=== PATIENT | female | born 1955 | race Caucasian/White ===

== ENCOUNTER 2018-05-05 17:14 | Inpatient (IN) | payer MEDICARE ==
[~2018-05-05] VITALS: Ht 165.1 cm; Wt 86.4 kg
[~2018-05-05 17:14] MED LIST: BUSP5TAB2 PO; DOXE150C PO; FOLI-17 PO; HYDR-3237 PO; LISI40TA PO; METH25VI INJ; OMEP20TA62 PO
[2018-05-05 18:24] LABS: MEAN CORPUSCULAR HEMOGLOBIN 32.8 pg (27.0-34.8); MEAN CORPUSCULAR HGB CONC 34.2 g/dL (32.4-35.8); MEAN CORPUSCULAR VOLUME 95.9 fL (80-100); PLATELET COUNT 275 x10^3/uL (130-400); RED BLOOD COUNT 4.46 x10^6/uL (3.82-5.3); RED CELL DISTRIBUTION WIDTH 12.9 % (9.6-15.2)
[2018-05-05 18:28] LABS: ALBUMIN 3.6 g/dL (3.4-5.0); ANION GAP 7 mmol/L (5-15); CALCIUM 8.6 mg/dL (8.5-10.1); CHLORIDE 111 mmol/L (98-107)
[2018-05-05 18:31] LABS: ALANINE AMINOTRANSFERASE 23 U/L (12-78); ALKALINE PHOSPHATASE 71 U/L (45-117); BILIRUBIN,TOTAL 0.2 mg/dL (0.2-1.0); CREATININE 1.06 mg/dL (0.55-1.02); TOTAL PROTEIN 7.2 g/dL (6.4-8.2)
[2018-05-05 18:51] LABS: INTERNATIONAL NORMALIZED RATIO 0.92 (0.93-1.1); PROTHROMBIN TIME 9.6 Seconds (9.6-11.5)
[2018-05-05 18:58] LABS: BASOPHILS # (AUTO) 0.12 x10^3/uL (0-0.1); BASOPHILS % (AUTO) 1 % (0-1); EOSINOPHILS # (AUTO) 0.26 x10^3/uL (0-0.4); EOSINOPHILS % (AUTO) 1 % (1-7); LYMPHOCYTES # (AUTO) 6.67 x10^3/uL (1-3.4); LYMPHOCYTES % (AUTO) 35 % (22-44); MD SCAN; MONOCYTES # (AUTO) 1.79 x10^3/uL (0.2-0.8); MONOCYTES % (AUTO) 9 % (2-9); NEUTROPHILS # (AUTO) 10.17 x10^3/uL (1.8-6.8); NEUTROPHILS % (AUTO) 54 % (42-75)
[2018-05-05] MEDS ORDERED: SODIUM CHLORIDE 0.9% 1,000 ML IV ONE ×2 (19:00→21:30)
[2018-05-05] MEDS ORDERED: SODIUM CHLORIDE FLUSH 10ML SYR IVF ONE (19:00)
[2018-05-05 20:54] VITALS: BP 147/78
[2018-05-05] MEDS ORDERED: ONDANSETRON ODT 4 MG PO PRN (21:30)
[2018-05-05] MEDS ORDERED: ACETAMINOPHEN 325 MG TABLET PO PRN (21:30)
[2018-05-05] MEDS: HYDROcodone/APAP 5/325 TABLET PO PRN (22:03)
[2018-05-05] MEDS: DOXEPIN 25 MG CAPSULE PO SCH (22:03)
[2018-05-05] MEDS: HEPARIN 5,000 UNITS/ML, 1ML SQ SCH (22:05)
[2018-05-05] MEDS: INSULIN LISPRO 100 UNITS/ML, PEN SQ-INSULIN SCH (22:37)
[2018-05-05 23:26] LABS: MICROSCOPIC NOT IND
[2018-05-05 23:31] LABS: CULTURE INDICATED? NO
[2018-05-05 23:40] LABS: AMPHETAMINE SCREEN, URINE Negative (Negative); BARBITURATE SCREEN, URINE Negative (Negative); BENZODIAZEPINE SCREEN, URINE Negative (Negative); CANNABINOID SCREEN, URINE Negative (Negative); COCAINE SCREEN, URINE Negative (Negative); METHADONE SCREEN, URINE Negative (Negative); OPIATE SCREEN, URINE Positive (Negative)
[2018-05-06 01:22] VITALS: BP 133/77
[2018-05-06 02:12] LABS: MEAN CORPUSCULAR HEMOGLOBIN 32.2 pg (27.0-34.8); MEAN CORPUSCULAR HGB CONC 33.7 g/dL (32.4-35.8); MEAN CORPUSCULAR VOLUME 95.4 fL (80-100); MEAN PLATELET VOLUME 8.7 fL (7.4-10.4); PLATELET COUNT 249 x10^3/uL (130-400); RED BLOOD COUNT 4.05 x10^6/uL (3.82-5.3); RED CELL DISTRIBUTION WIDTH 13.4 % (9.6-15.2)
[2018-05-06 02:22] LABS: ANION GAP 9 mmol/L (5-15); CALCIUM 8.3 mg/dL (8.5-10.1); CHLORIDE 110 mmol/L (98-107); CREATININE 0.87 mg/dL (0.55-1.02); TRIGLYCERIDES 474 mg/dL (50-200)
[2018-05-06 02:23] LABS: CHOLESTEROL, TOTAL 154 mg/dL (140-239)
[2018-05-06 02:33] LABS: CHOL/HDL RATIO 4.2; HDL CHOL % 24 % (28-40); HDL CHOLESTEROL (DIRECT) 37 mg/dL (40-60)
[2018-05-06 02:36] LABS: BASOPHILS # (AUTO) 0.12 x10^3/uL (0-0.1); BASOPHILS % (AUTO) 1 % (0-1); EOSINOPHILS # (AUTO) 0.26 x10^3/uL (0-0.4); EOSINOPHILS % (AUTO) 1 % (1-7); LYMPHOCYTES # (AUTO) 7.25 x10^3/uL (1-3.4); LYMPHOCYTES % (AUTO) 40 % (22-44); MD NO; MONOCYTES # (AUTO) 1.55 x10^3/uL (0.2-0.8); MONOCYTES % (AUTO) 9 % (2-9); NEUTROPHILS # (AUTO) 8.79 x10^3/uL (1.8-6.8); NEUTROPHILS % (AUTO) 49 % (42-75)
[2018-05-06 03:09] LABS: HEMOGLOBIN A1C 7.2 % (4.2-6.3)
[2018-05-06] MEDS: HEPARIN 5,000 UNITS/ML, 1ML SQ SCH ×3 (05:13→20:47)
[2018-05-06] MEDS: INSULIN LISPRO 100 UNITS/ML, PEN SQ-INSULIN SCH ×8 (07:00→21:00)
[2018-05-06 07:35] VITALS: BP 134/74
[2018-05-06] MEDS: OMEPRAZOLE 20 MG CAPSULE.DR PO SCH (07:40)
[2018-05-06] MEDS: LISINOPRIL 20 MG TABLET PO SCH (07:40)
[2018-05-06] MEDS: HYDROcodone/APAP 5/325 TABLET PO PRN ×3 (07:41→20:47)
[2018-05-06] MEDS: SENNA/DOCUSATE TABLET PO SCH (07:41)
[2018-05-06] MEDS ORDERED: GADOBUTROL 7.5 MMOL/7.5 ML PFS ONE (08:15)
[2018-05-06 12:04] LABS: HCT (SEDRATE) 41.9 % (34.6-47.8)
[2018-05-06] MEDS: CLOPIDOGREL 75 MG TABLET PO SCH (12:28)
[2018-05-06 13:30] VITALS: BP 149/81
[2018-05-06 20:00] VITALS: BP 146/92
[2018-05-06] MEDS ORDERED: DOXEPIN 100 MG CAPSULE PO SCH (21:00)
[2018-05-06] MEDS ORDERED: ATORVASTATIN 40 MG TABLET PO SCH (21:00)
[2018-05-06] MEDS ORDERED: BUSPIRONE 5 MG TABLET PO SCH (21:00)
[2018-05-06] MEDS ORDERED: SIMVASTATIN 20 MG TABLET PO SCH (21:00)
[2018-05-06] MEDS: DOXEPIN 25 MG CAPSULE PO SCH (21:44)
[2018-05-07 03:44] VITALS: BP 137/77
[2018-05-07 05:03] LABS: MEAN CORPUSCULAR HEMOGLOBIN 32.5 pg (27.0-34.8); MEAN CORPUSCULAR VOLUME 95.6 fL (80-100); PLATELET COUNT 250 x10^3/uL (130-400); RED BLOOD COUNT 4.17 x10^6/uL (3.82-5.3); RED CELL DISTRIBUTION WIDTH 13.1 % (9.6-15.2)
[2018-05-07] MEDS: HEPARIN 5,000 UNITS/ML, 1ML SQ SCH (05:10)
[2018-05-07 05:50] LABS: BASOPHILS # (AUTO) 0.07 x10^3/uL (0-0.1); BASOPHILS % (AUTO) 1 % (0-1); EOSINOPHILS # (AUTO) 0.46 x10^3/uL (0-0.4); EOSINOPHILS % (AUTO) 3 % (1-7); LYMPHOCYTES # (AUTO) 6.06 x10^3/uL (1-3.4); LYMPHOCYTES % (AUTO) 40 % (22-44); MD SCAN; MONOCYTES # (AUTO) 1.27 x10^3/uL (0.2-0.8); MONOCYTES % (AUTO) 8 % (2-9); NEUTROPHILS # (AUTO) 7.26 x10^3/uL (1.8-6.8); NEUTROPHILS % (AUTO) 48 % (42-75)
[2018-05-07] MEDS: HYDROcodone/APAP 5/325 TABLET PO PRN (06:42)
[2018-05-07 07:18] VITALS: BP 122/81
[2018-05-07] MEDS: INSULIN LISPRO 100 UNITS/ML, PEN SQ-INSULIN SCH ×2 (08:23→12:54)
[2018-05-07] MEDS: CLOPIDOGREL 75 MG TABLET PO SCH (10:01)
[2018-05-07] MEDS: LISINOPRIL 20 MG TABLET PO SCH (10:01)
[2018-05-07] MEDS: OMEPRAZOLE 20 MG CAPSULE.DR PO SCH (10:01)
[2018-05-07] MEDS: SENNA/DOCUSATE TABLET PO SCH (10:02)
[2018-05-07] MEDS ORDERED: ENOXAPARIN 40 MG/0.4 ML SQ SCH (11:30)
[2018-05-07] MEDS ORDERED: METF500T PO (12:57)
[2018-05-07] MEDS ORDERED: ATOR40TA78 PO (12:57)
[2018-05-07] MEDS ORDERED: ASPI-515 PO (12:57)
[2018-05-07] MEDS ORDERED: ASPIRIN 81 MG TABLET CHEW PO ONE (13:00)
[2018-05-07 14:07] VITALS: BP 126/84
[2018-05-07] MEDS ORDERED: ASPI-621 PO (15:57)
[2018-05-07] MEDS ORDERED: metFORMIN 500 MG TABLET PO SCH (17:00)
== END 2018-05-07 16:30 | disposition home or self-care (01) | DRG 65 ==
LOC: ED 19:13 → EDIP 19:18 → INTOOBSV 19:18 → OBSVTOIN 19:18 → ED 19:26 → 4EST 21:06 → DCLOUNGE 05-07 16:00
PROVIDERS: ADMIT Internal Medicine; ATTEND Internal Medicine
DX: I63.512 Cerebral infarction due to unspecified occlusion or stenosis of left middle cerebral artery (principal); G81.91 Hemiplegia, unspecified affecting right dominant side; E87.2 Acidosis; R65.10 Systemic inflammatory response syndrome (SIRS) of non-infectious origin without acute organ dysfunction; I77.1 Stricture of artery; E78.5 Hyperlipidemia, unspecified; E11.9 Type 2 diabetes mellitus without complications; M48.061 Spinal stenosis, lumbar region without neurogenic claudication; M06.9 Rheumatoid arthritis, unspecified; I10 Essential (primary) hypertension; I70.8 Atherosclerosis of other arteries; F17.200 Nicotine dependence, unspecified, uncomplicated; D72.829 Elevated white blood cell count, unspecified; G89.29 Other chronic pain; Z60.2 Problems related to living alone; M32.9 Systemic lupus erythematosus, unspecified; J32.9 Chronic sinusitis, unspecified; M54.9 Dorsalgia, unspecified; H53.8 Other visual disturbances; Z88.0 Allergy status to penicillin; Z90.89 Acquired absence of other organs; Z79.82 Long term (current) use of aspirin; Z79.84 Long term (current) use of oral hypoglycemic drugs; Z79.899 Other long term (current) drug therapy; Z88.6 Allergy status to analgesic agent; Z90.81 Acquired absence of spleen
CPT/HCPCS: 36415; 70450; 70553; 71045; 80048; 80053; 80061; 80307; 81003; 82962; 83036; 83605; 83735; 84100; 84443; 85025; 85610; 85651; 85730; 86140; 93005; 93306; 93880; 99285; A9585; J1644; J1650; J1815; J7030

== ENCOUNTER 2018-05-27 09:20 | Day surgery (SDC) | payer MEDICARE ==
[~2018-05-27] VITALS: Ht 165.1 cm; Wt 85.0 kg
[~2018-05-27 09:20] MED LIST changes: +ASPI-515 PO; +ASPI-621 PO; +ATOR40TA78 PO; +METF500T PO
[2018-05-27 10:06] VITALS: BP 140/102
== END 2018-05-27 10:58 | disposition home or self-care (01) ==
LOC: CACL 09:20
PROVIDERS: ATTEND Internal Medicine Cardiovascular Disease
DX: I63.9 Cerebral infarction, unspecified (principal); F15.90 Other stimulant use, unspecified, uncomplicated; I10 Essential (primary) hypertension; E11.9 Type 2 diabetes mellitus without complications; E78.5 Hyperlipidemia, unspecified; I77.1 Stricture of artery; I73.9 Peripheral vascular disease, unspecified; J44.9 Chronic obstructive pulmonary disease, unspecified; Z79.82 Long term (current) use of aspirin; Z88.6 Allergy status to analgesic agent; Z88.0 Allergy status to penicillin; Z88.8 Allergy status to other drugs, medicaments and biological substances; Z79.899 Other long term (current) drug therapy; Z87.891 Personal history of nicotine dependence
CPT/HCPCS: 33282; C1764

== ENCOUNTER → 2018-06-25 | Outpatient (CLI) | payer MEDICARE | END | disposition home or self-care (01) | LOC: CVU 06:44 | PROVIDERS: ATTEND Internal Medicine Cardiovascular Disease | DX: I70.203 Unspecified atherosclerosis of native arteries of extremities, bilateral legs (principal); I74.5 Embolism and thrombosis of iliac artery; I10 Essential (primary) hypertension; M06.9 Rheumatoid arthritis, unspecified; R01.1 Cardiac murmur, unspecified; I77.1 Stricture of artery; E11.9 Type 2 diabetes mellitus without complications; J44.9 Chronic obstructive pulmonary disease, unspecified; Z87.891 Personal history of nicotine dependence | CPT/HCPCS: 93922; 93925; 93978 ==

== ENCOUNTER → 2018-07-30 | Outpatient (CLI) | payer MEDICARE ==
[~2018-07-30] MED LIST changes: +OMNIPAQUE 350 MG/ML, 100ML BOTTLE ONE
== END | disposition home or self-care (01) ==
LOC: CFH 12:46
DX: I70.213 Atherosclerosis of native arteries of extremities with intermittent claudication, bilateral legs (principal); R16.1 Splenomegaly, not elsewhere classified; K76.89 Other specified diseases of liver
CPT/HCPCS: 74174; Q9967

== ENCOUNTER → 2018-08-01 | Outpatient (CLI) | payer MEDICARE ==
[~2018-08-01] MED LIST changes: -OMNIPAQUE 350 MG/ML, 100ML BOTTLE ONE; +REGADENOSON 0.4 MG/5 ML SYRINGE ONE
== END | disposition home or self-care (01) ==
LOC: CFH 12:02
PROVIDERS: ATTEND Nurse Practitioner Family
DX: I73.9 Peripheral vascular disease, unspecified (principal); J44.9 Chronic obstructive pulmonary disease, unspecified; E11.9 Type 2 diabetes mellitus without complications
CPT/HCPCS: 78452; 93017; A9502; J2785

== ENCOUNTER → 2019-01-28 | Outpatient (CLI) | payer MEDICARE ==
[~2019-01-28] MED LIST changes: +ACID1TAB7 PO; -ASPI-621 PO; +ASPI81TA45 PO; +CARV3.1212 PO; +CEFI400C PO; +CLOP75TA PO; +GUAI400T66 PO; +LEVO750T6 PO; -REGADENOSON 0.4 MG/5 ML SYRINGE ONE
== END | disposition home or self-care (01) ==
LOC: CFH 10:35
PROVIDERS: ATTEND Family Medicine
DX: J18.9 Pneumonia, unspecified organism (principal); M47.814 Spondylosis without myelopathy or radiculopathy, thoracic region; Z87.891 Personal history of nicotine dependence
CPT/HCPCS: 71046

== ENCOUNTER → 2019-02-03 | Outpatient (CLI) | payer MEDICARE | END | disposition home or self-care (01) | LOC: CFH 12:36 | PROVIDERS: ATTEND Internal Medicine | DX: M05.79 Rheumatoid arthritis with rheumatoid factor of multiple sites without organ or systems involvement (principal); M81.0 Age-related osteoporosis without current pathological fracture | CPT/HCPCS: 77077 ==

== ENCOUNTER → 2019-03-06 | Outpatient (CLI) | payer MEDICARE | END | disposition home or self-care (01) | LOC: CVU 07:30 | PROVIDERS: ATTEND Physician Assistant | DX: I10 Essential (primary) hypertension (principal); E78.5 Hyperlipidemia, unspecified | CPT/HCPCS: 93306 ==

== ENCOUNTER → 2020-06-02 | Outpatient (CLI) | payer MEDICARE ==
[~2020-06-02] MED LIST changes: +DOCU-131 PO; -GUAI400T66 PO; +GUAI400T81 PO; +METF500T17 PO; +METHOTREXATE IM; +ONDA4TAB7 PO; +OXYC-307 PO
== END | disposition home or self-care (01) ==
LOC: CVU 09:20
PROVIDERS: ATTEND Surgery
DX: I70.201 Unspecified atherosclerosis of native arteries of extremities, right leg (principal)
CPT/HCPCS: 93922; 93925

== ENCOUNTER 2021-02-20 09:07 | Outpatient (CLI) | payer MEDICARE ==
[~2021-02-20 09:07] MED LIST changes: -ASPI-515 PO; +ASPI-963 PO; -FOLI-17 PO; +FOLI1TAB32 PO; -LISI40TA PO; +LISI40TA9 PO; -OXYC-307 PO; +OXYC-501 PO
== END 2021-02-20 23:59 | disposition home or self-care (01) ==
LOC: CFH 09:07
PROVIDERS: ATTEND Family Medicine
DX: Z12.31 Encounter for screening mammogram for malignant neoplasm of breast (principal); M85.80 Other specified disorders of bone density and structure, unspecified site; N95.9 Unspecified menopausal and perimenopausal disorder
CPT/HCPCS: 77063; 77067; 77080